=== PATIENT | female | born 1950 | race Caucasian/White ===

== ENCOUNTER 2021-03-01 09:00 | Inpatient (IN) ==
[2021-03-01] MEDS ORDERED: ONDANSETRON INJ 2 MG/ML 2 ML VIAL IV PRN (09:12)
[2021-03-01] MEDS ORDERED: ALUMINUM/MAGNESIUM SUSP 30 ML UDC PO PRN (09:12)
[2021-03-01] MEDS ORDERED: MAGNESIUM HYDROXIDE SUSP 30 ML UDC PO PRN (09:12)
[2021-03-01] MEDS ORDERED: PATIENT'S HEIGHT AND/OR WEIGHT NEEDED SCH (09:45)
[2021-03-01] MEDS: SODIUM CHLORIDE 0.9% 1000ML 1,000 ML IV SCH ×2 (10:00→17:35)
[2021-03-01 10:46] LABS: Basophils # (auto) 0.03 K/uL (0-0.2); Basophils % (auto) 0.7 %; Eosinophils # (auto) 0.22 K/uL (0-0.5); Eosinophils % (auto) 5.2 %; Hematocrit (blood only) 39.6 % (37-47); Hemoglobin 13.5 g/dL (12.0-16.0); Lymphocytes # (auto) 0.72 K/uL (1.2-3.4); Mean Platelet Volume 9.8 fL (7.4-10.4); Monocytes # (auto) 0.46 K/uL (0.11-0.59); Monocytes % (auto) 10.8 %; Neutrophils # (auto) 2.81 K/uL (1.4-6.5); Neutrophils % (auto) 66.3 %; Platelet Count 267 K/uL (130-400); RDW Coefficient of Variation 15.8 % (11.5-14.5); RDW Standard Deviation 52.7 fL (36.4-46.3); Red Blood Count 4.35 M/uL (4.2-5.4); White Blood Count 4.24 K/uL (4.8-10.8)
[2021-03-01 10:53] LABS: Mean Corpuscular Hgb Conc 34.1 g/dL (32-36)
[2021-03-01 11:06] LABS: Alanine Aminotransferase 22 U/L (12-78); Albumin Level 2.8 gm/dl (3.4-5.0); Aspartate Aminotransferase 20 U/L (15-37); BUN Creatinine Ratio 17.8 (10-20); Blood Urea Nitrogen 14 mg/dl (7-18); Calcium 8.6 mg/dl (8.5-10.1); Carbon Dioxide 32 mmol/L (21-32); Chloride 108 mmol/L (98-107); Creatinine Clr Calc Pharmacy 55.7 ml/min; Est GFR (African American) 89.9 ml/min; Est GFR (Non-African American) 77.6 ml/min; Glucose 86 mg/dl (70-99); Potassium 4.3 mmol/L (3.5-5.1); Sodium 141 mmol/L (136-145); Uric Acid 4.1 mg/dl (2.6-7.2)
[2021-03-01 11:08] LABS: Albumin Globulin Ratio 0.8 (0.9-2); Alkaline Phosphatase 53 U/L (45-117); Bilirubin Direct < 0.1 mg/dl (0-0.2); Bilirubin,Total 0.3 mg/dl (0.2-1); Globulin 3.6 gm/dl (2.5-4.0); Total Protein 6.4 gm/dl (6.4-8.2)
[2021-03-01] MEDS: SULFAMETHOXAZOLE/TRIMETHOPRIM DS 800/160MG TAB PO SCH ×2 (11:53→21:15)
[2021-03-01] MEDS: levoFLOXacin 750 MG TAB PO SCH (11:54)
[2021-03-01] MEDS: valACYclovir HCL 500 MG TABLET PO SCH ×2 (11:54→21:15)
[2021-03-01] MEDS: PYRIDOXINE HCL 50 MG TAB PO SCH (11:54)
[2021-03-01] MEDS: allopurinoL 300 MG TAB PO SCH (11:55)
[2021-03-01] MEDS ORDERED: ONDANSETRON 8MG OD TAB PO SCH (13:30)
[2021-03-01] MEDS ORDERED: dexAMETHasone 4 MG TAB PO SCH (13:30)
[2021-03-01] MEDS: CHOLECALCIFEROL 1,000 UNITS 25 MCG TAB PO SCH (13:41)
[2021-03-01] MEDS ORDERED: allopurinoL 100 MG TAB PO SCH (14:00)
[2021-03-01] MEDS ORDERED: DOXORUBICIN HCL IV SCH (14:00)
[2021-03-01] MEDS ORDERED: CYCLOPHOSPHAMIDE IV SCH (14:30)
[2021-03-01] MEDS ORDERED: SODIUM CHLORIDE 0.9% IV SCH (14:30)
[2021-03-01] MEDS ORDERED: HEPARIN 100 UNIT/ML 5ML FLUSH ONE (17:27)
[2021-03-01] MEDS: predniSONE 50 MG TAB PO SCH (17:34)
--- NOTE | 2021-03-01 17:52 | History & Physical Report ---
Date of Service March 01, 2021 Assessment & Plan (1) Follicular lymphoma grade III: Plan: Patient was prehospital started on valacyclovir levofloxacin and Bactrim. She was on uric acid also initiated will be continued on such to avoid tumor lysis syndrome and she will be hydrated with normal saline although if tumor lysis syndrome occurs a less than isotonic crystalloid solution can be considered. Patient has R-CHOP orders by oncological consultation on the chart for a port is not significantly tender Patient will have surveillance laboratories for hyperkalemia hypercalcemia and hyperphosphatemia tumor lysis. Enoxaparin will be used for DVT prevention unless platelet counts become substantially lowered from chemotherapy Admission and Anticipated Discharge Date Admission Date: March 01, 2021 History of Present Illness Primary Care Provider: DARIO Laguna 71-year-old female who was admitted after left upper chest a port was placed. In December 2020 the patient had abdominal pain and a CT scan abdomen pelvis that showed a large intra-abdominal mass. Patient underwent fine-needle aspiration and core biopsy on January 15 showing a follicular grade 3A lymphoma primarily small cell. PET scan February 08 showed uptake in the left supraclavicular lymph node, right chest wall, right femoral lymph node, and a large conglomeration in the abdomen measuring 13 x 11 x 19. There was some retrocrural lymph nodes and mediastinal and hilar lymph nodes that were calcified and feels likely to be secondary to inflammation. Patient is admitted for chemotherapy. Prechemotherapy echocardiogram was with an EF of 65%. Brain MRI of 03 February showed no changes or leptomeningeal enhancement. And a bone marrow biopsy February 02 was normal cellular with maturing trilineage hematopoiesis. The patient has night sweats and unintentional weight loss decreased energy and headache. Patient is admitted with likely lymphoma grade 3A stage IVb admitted for HOP chemotherapy with concern for tumor lysis syndrome Allergies Allergy/AdvReac Type Severity Reaction Status Date / Time No Known Allergies Allergy Verified 03/01/21 05:53 Home Medications Medication Instructions Recorded Confirmed Type allopurinol 100 mg tablet 200 mg PO DAILY tab 02/25/21 03/01/21 History calcium carbonate 600 mg (1,500 1 tab PO DAILY 02/25/21 03/01/21 History mg)-vitamin D3 200 unit tablet (Calcium 600 + D(3)) cod liver oil 5 ml PO DAILY 02/25/21 03/01/21 History levofloxacin 750 mg tablet 750 mg PO DAILY 02/25/21 03/01/21 History pyridoxine (vitamin B6) 50 mg 50 mg PO DAILY 02/25/21 03/01/21 History tablet (Vitamin B-6) sulfamethoxazole 800 1 tab PO BID 02/25/21 03/01/21 History mg-trimethoprim 160 mg tablet (Bactrim DS) valacyclovir 500 mg tablet 500 mg PO Q12H 02/25/21 03/01/21 History (Valtrex) ergocalciferol (vitamin D2) 1,000 1 tab PO DAILY 03/01/21 03/01/21 History unit tablet Past Med/Surg History Medical History (Updated 03/01/21 @ 17:51 by Ross Caba MD) Follicular lymphoma grade III Non-Hodgkin lymphoma Surgical History (Updated 03/01/21 @ 13:15 by Della Bloom, ABDIRASHID) H/O lymph node biopsy Port-A-Cath in place (03/01/21) Insertion of Access Port Left Subclavian with Fluoroscopy Dr. 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: No Beliefs That Will Affect Care: None Current Living Situation: Spouse and Family Other Information That Helps Us Care for You: No Feels Safe at Home: Yes Safety Concerns: Feels Safe At This Time Assistive Devices: Glasses Review of Systems Review of Systems: Mild distress and fatigue has had sweating at night Frontal bioccipital headache, no visual changes no speech or swallowing issues no chest pain, pressure or palpitations no shortness of breath, cough or wheezes This is a centralized aching style abdominal pain, no nausea or vomiting, no diarrhea or constipation Has had unintentional weight loss no dysuria, hematuria or frequency no focal joint pain or swelling no back pain, CVA tenderness or radicular pain no bruising, bleeding or rashes no focal signs of weakness or numbness or altered sensation no complaints of anxiety or depression.. Physical Exam Physical Exam: The patient appeared well nourished and normally developed. Vital signs as documented. Head exam is normocephalic atraumatic Neck is without JVD, thyromegaly, or carotid bruits. Lungs are clear to auscultation, no focal loss of breath sounds a port present in the right upper chest Cardiac exam, Rhythm is regular.. No murmurs, rubs or gallops. Abdominal exam reveals normal bowel sounds, soft doughy central abdominal examination no defined hepatomegaly or masses felt Extremities are nonedematous and both pedal pulses are present Neurologic exam is alert and oriented, no focal loss of strength or sensation Skin is without bruises or rashes Psychologically is without concerns for anxiety or depression Results & Data Results & Data ([facility]) Vital Signs (Past 12 Hours) Vital Signs Temp Pulse Resp BP Pulse Ox 03/01/21 15:00 97.7 F 80 18 129/71 92 03/01/21 13:58 83 20 147/78 H 96 03/01/21 11:58 79 20 122/81 96 03/01/21 10:37 98.8 F 87 16 128/67 94 03/01/21 10:18 99.0 F 81 16 138/73 96 03/01/21 09:40 97.7 F 81 20 158/78 H 96 Code Status & VTE Plan VTE Prophylaxis Plan VTE Prophylaxis will be ordered: Yes PG Care Time/CCT Total # of Minutes Spent Total Time Spent with Patient: Total time spent is greater than 50% in coordination of care (as documented) at patient's floor/unit and/or counseling patient: Coding Level of Care Code 28278 Initial Inpt Care Lvl 2 Diagnoses Follicular lymphoma grade III C82.20
[2021-03-01 18:02] LABS: Basophils # (auto) 0.03 K/uL (0-0.2); Basophils % (auto) 0.4 %; Eosinophils # (auto) 0.03 K/uL (0-0.5); Eosinophils % (auto) 0.4 %; Hematocrit (blood only) 38.8 % (37-47); Hemoglobin 13.2 g/dL (12.0-16.0); Immature Granulocytes # (auto) 0.01 K/uL (0.00-0.02); Immature Granulocytes % (auto) 0.1 %; Lymphocytes # (auto) 0.57 K/uL (1.2-3.4); Lymphocytes % (auto) 8.5 %; Mean Corpuscular Hemoglobin 30.7 pg (25-34); Mean Corpuscular Volume 90.2 fL (80-100); Mean Platelet Volume 9.8 fL (7.4-10.4); Monocytes # (auto) 0.09 K/uL (0.11-0.59); Monocytes % (auto) 1.3 %; Neutrophils # (auto) 5.98 K/uL (1.4-6.5); Neutrophils % (auto) 89.3 %; Nucleated RBC # (auto) 0.05 K/uL (0-0); Nucleated RBC % (auto) 0.8 %; Platelet Count 216 K/uL (130-400); RDW Coefficient of Variation 15.7 % (11.5-14.5); RDW Standard Deviation 51.4 fL (36.4-46.3); White Blood Count 6.71 K/uL (4.8-10.8)
[2021-03-01 18:20] LABS: Calcium 7.5 mg/dl (8.5-10.1); Potassium 4.4 mmol/L (3.5-5.1)
[2021-03-01 18:24] LABS: Phosphorus 2.3 mg/dl (2.5-4.9)
[2021-03-02] MEDS: SODIUM CHLORIDE 0.9% 1000ML 1,000 ML IV SCH ×3 (01:37→15:55)
[2021-03-02] MEDS: ACETAMINOPHEN 325 MG TAB PO PRN ×2 (02:20→22:36)
[2021-03-02 06:37] LABS: Hematocrit (blood only) 37.6 % (37-47); Mean Corpuscular Hemoglobin 30.8 pg (25-34); Mean Corpuscular Hgb Conc 34.6 g/dL (32-36); Mean Corpuscular Volume 89.1 fL (80-100); Mean Platelet Volume 9.8 fL (7.4-10.4); Platelet Count 233 K/uL (130-400); RDW Coefficient of Variation 15.3 % (11.5-14.5); RDW Standard Deviation 49.5 fL (36.4-46.3); Red Blood Count 4.22 M/uL (4.2-5.4); White Blood Count 7.91 K/uL (4.8-10.8)
[2021-03-02 07:09] LABS: BUN Creatinine Ratio 27.1 (10-20); Calcium 7.8 mg/dl (8.5-10.1); Est GFR (African American) 97.4 ml/min; Magnesium 2.2 mg/dl (1.8-2.4)
[2021-03-02 07:17] LABS: Phosphorus 3.5 mg/dl (2.5-4.9)
[2021-03-02] MEDS: allopurinoL 300 MG TAB PO SCH (08:23)
[2021-03-02] MEDS: CHOLECALCIFEROL 1,000 UNITS 25 MCG TAB PO SCH (08:23)
[2021-03-02] MEDS: levoFLOXacin 750 MG TAB PO SCH (08:23)
[2021-03-02] MEDS: ENOXAPARIN INJ 40 MG/0.4 ML SYR SQ SCH (08:24)
[2021-03-02] MEDS: valACYclovir HCL 500 MG TABLET PO SCH ×2 (08:24→20:14)
[2021-03-02] MEDS: PYRIDOXINE HCL 50 MG TAB PO SCH (08:24)
[2021-03-02] MEDS: predniSONE 50 MG TAB PO SCH (08:24)
--- NOTE | 2021-03-02 08:34 | Hospitalist Progress Note ---
Date of Service March 02, 2021 Assessment & Plan (1) Follicular lymphoma grade III: Plan: Patient was prehospital started on valacyclovir levofloxacin and Bactrim. She was on uric acid also initiated will be continued on such to avoid tumor lysis syndrome and she will be hydrated with normal saline although if tumor lysis syndrome occurs a less than isotonic crystalloid solution can be considered. Patient has R-CHOP orders by oncological consultation on the chart for a port looks good. Lab rituximab infusion reported in March [address] Guzman Patient will continue to have surveillance laboratories for hyperkalemia hypercalcemia and hyperphosphatemia tumor lysis. Enoxaparin will be used for DVT prevention unless platelet counts become substantially lowered from chemotherapy Admission and Anticipated Discharge Date Admission Date: March 01, 2021 Subjective Patient currently has no complaints or problems reportedly has the remain in the hospital additional day form completion of her intravenous chemotherapeutic regimen which is complicated by her transportation limitations given she is [employer]. Reportedly if her laboratories look good if she receives her rituximab infusion she will be go home on 03 March with [facility] Review of Systems Review of Systems: Mild distress and fatigue has had sweating at night Frontal bioccipital headache, no visual changes no speech or swallowing issues no chest pain, pressure or palpitations no shortness of breath, cough or wheezes This is a centralized aching style abdominal pain, no nausea or vomiting, no diarrhea or constipation Has had unintentional weight loss no dysuria, hematuria or frequency no focal joint pain or swelling no back pain, CVA tenderness or radicular pain no bruising, bleeding or rashes no focal signs of weakness or numbness or altered sensation no complaints of anxiety or depression.. Physical Exam Physical Exam: The patient appeared well nourished and normally developed. Vital signs as documented. Head exam is normocephalic atraumatic Neck is without JVD, thyromegaly, or carotid bruits. Lungs are clear to auscultation, no focal loss of breath sounds a port present in the right upper chest Cardiac exam, Rhythm is regular.. No murmurs, rubs or gallops. Abdominal exam reveals normal bowel sounds, soft doughy central abdominal examination no defined hepatomegaly or masses felt Extremities are nonedematous and both pedal pulses are present Neurologic exam is alert and oriented, no focal loss of strength or sensation Skin is without bruises or rashes Psychologically is without concerns for anxiety or depression Results & Data Results & Data ([facility]) Vital Signs (Past 12 Hours) Vital Signs Temp Pulse Resp BP BP Pulse Ox 03/02/21 07:35 97.9 F 78 18 126/67 93 03/02/21 04:04 98.8 F 81 18 118/57 L 94 03/01/21 23:38 98.8 F 87 18 130/68 94 PG Care Time/CCT Total # of Minutes Spent Total Time Spent with Patient: Total time spent is greater than 50% in coordination of care (as documented) at patient's floor/unit and/or counseling patient: Coding Level of Care Code 46204 Subseq Hosp Care Lvl 2 Diagnoses Follicular lymphoma grade III C82.20
[2021-03-02] MEDS ORDERED: PYRIDOXINE HCL 50 MG TAB PO SCH (09:00)
[2021-03-02] MEDS ORDERED: ERGOCALCIFEROL 1000 UNIT PO SCH (09:00)
--- NOTE | 2021-03-02 10:10 | Consultation Report ---
DATE OF CONSULT: 03/02/2021. REASON FOR CONSULTATION: Follicular lymphoma, grade 3A stage IV, high risk for tumor lysis, receiving initial R-CHOP chemotherapy. HISTORY OF PRESENT ILLNESS: The patient is a 71-year-old [place] female who presents to [facility] at the request of her medical oncologist to [facility], Dr. Saran Gomez f or initiation of induction chemotherapy. The patient has been worked up in the past in late December to be precise and referring directly to Dr. Gomez's clinical note dated 02/10/2021. The patient in December had developed abdominal pain and presented to the ER where a CT of the abdomen showed a large intraab dominal mass. CT-guided FNA and core biopsy of the mass revealed follicular grade 3A lymphoma, CD10 positive, lambda light chain restricted, CD10, CD19 positive and CD20 dim to moderate. Clinically, t he patient had been battling with night sweats 16-pound unintentional weight loss since August, dec reased energy level and occasional bifrontal headache. Further workup including PET scan revealed in tensely avid 1.2 cm left supraclavicular lymph node, a 1.5 cm right chest wall nodule, 1.7 right femo ral lymph node, 13.2 x 11 x 19.1 large conglomerate abdominal lymph node classifying her as a bulky p resentation. Thus, because of risk of tumor lysis Dr. Gomez felt patient should be admitted to the [facility] to receive an initial course of R-CHOP. Visited with the patient at bedside today. She is fe eling well, no complaint of pain or abdominal discomfort. Nursing reports having some difficulty wit h MediPort, but otherwise, no significant issues today. PAST MEDICAL HISTORY: Non-Hodgkin's lymphoma, gastroesophageal reflux disease, vitamin D deficiency. PAST SURGICAL HISTORY: No surgical history other than a MediPort placement and lymph node biopsy. MEDICATIONS: Vitamin D 1000 units one tablet p.o. every day, valacyclovir 500 mg p.o. q. 12 hours, p rophylactic Bactrim 1 tablet p.o. b.i.d., prophylactic vitamin B6 50 mg p.o. every day, levofloxacin 750 mg p.o. every day, cod liver oil 5 mL p.o. every day, calcium carbonate 600 mg 1 tablet p.o. ever y day, allopurinol 200 mg p.o. every day. ALLERGIES: No known drug allergies. SOCIAL HISTORY: Patient lives with her spouse. She wears corrective lenses. She is a nonsmoker, no ndrinker, nonillicit drug user. FAMILY HISTORY: Noncontributory. REVIEW OF SYSTEMS: CONSTITUTIONAL: As per HPI, most notably for anorexia, weight loss, and night sweats. No current fe priyank or chills. SKIN: No rashes or lesions. No history of dermatoses. HEENT: Negative for headaches, lightheadedness or dizziness. No acute visual or hearing deficits. No sinus symptoms, sore throat or dysphagia. LYMPH: Positive diagnosis follicular grade 3A non-Hodgkin's lymphoma. CARDIAC: Negative for coronary artery disease, no angina or palpitations. PULMONARY: Negative for COPD. She is not acutely short of breath, dyspneic or orthopneic. No cough or hemoptysis. GASTROINTESTINAL: Negative for abdominal pain, nausea, vomiting, diarrhea or constipation, hematoche rosalie or melena stools. GENITOURINARY: Negative for hematuria, dysuria, urinary incontinence. PSYCHIATRIC: Negative for anxiety, depression, or psychoses. ENDOCRINE: Negative for diabetes or thyroid disease. MUSCULOSKELETAL: No focal muscle weakness. No arthralgias or myalgias. NEUROLOGIC: Negative for seizure, stroke or migraine headache. HEMATOLOGIC: Negative for anemia, thrombophilia or bleeding diathesis. PHYSICAL EXAMINATION: GENERAL: Very pleasant 71-year-old [facility] female in no acute distress. VITAL SIGNS: Temperature 37.1, pulse 81, respiratory rate 18, blood pressure 118/57. SKIN: Warm, dry noncyanotic without petechia, rash or ecchymosis. HEENT: Head atraumatic, normocephalic. Eyes: PERRLA, EOMI. Sclerae are nonicteric. No conjunctiv al injection. Nares patent without rhinorrhea or discharge. Throat is clear. Tongue midline. Muco us membranes are moist. NECK: Supple without JVD or thyromegaly. LYMPH: No cervical, supraclavicular, axillary or inguinal palpable nodes. HEART: Regular rate and rhythm. No clicks, rubs, murmurs or gallops. LUNGS: Clear to auscultation bilaterally. ABDOMEN: Soft, nontender, nondistended, without palpable hepatosplenomegaly. EXTREMITIES: No calf tenderness or swelling. No clubbing, cyanosis or edema. NEUROLOGICALLY: She is awake, alert and oriented x3. Cranial nerves are grossly intact. LABORATORY DATA: WBC count is 7910, hemoglobin 13, platelet count 233,000. Electrolytes are pending including uric acid, phosphorus, calcium and magnesium. LDH 306, albumin 2.8. IMPRESSION: Grade 3A follicular lymphoma, stage IVB, CD20 positive, PAX5, BCL2, BCL6, FLIPI score of 4, high risk. PLAN: The patient is a pleasant 71-year-old [facility] female under the care of Dr. Saran Gomez from the [facility]. Recent diagnosis of stage IVB follicular lymphoma, grade 3A. Because of bul ky disease patient is high risk for tumor lysis thus Dr. Gomez requested the patient be admitted for a ggressive IV hydration and careful monitoring of electrolytes moving forward. She continues prophyla ctic antibiotics and antivirals. She is on prophylactic allopurinol as well. Thus far, doing well, I believe she is scheduled to receive rituximab tomorrow if electrolytes remain stable. Thus far, kuldeep putnam seems to be doing relatively well and advised the patient, she will receive cycle #2 at [facility] in 3 we eks. Appreciate the hospitalist assistance in caring for this very pleasant patient. We will contin chris to follow along with you during her hospital stay. Job ID: [id number]
[2021-03-02 19:48] LABS: Est GFR (Non-African American) 56.1 ml/min
[2021-03-02] MEDS: HEPARIN 100 UNIT/ML 5ML FLUSH FLUSH PRN (22:40)
[2021-03-03] MEDS: SODIUM CHLORIDE 0.9% 1000ML 1,000 ML IV SCH ×3 (00:01→17:38)
[2021-03-03] MEDS ORDERED: ALTEPLASE, RECOMBINANT 1 MG/ML 2ML VIAL INSTIL ONE (08:00)
[2021-03-03] MEDS ORDERED: WATER, STERILE FOR INJ 10 ML VIAL IV ONE (08:00)
[2021-03-03] MEDS: allopurinoL 300 MG TAB PO SCH (08:06)
[2021-03-03] MEDS: PYRIDOXINE HCL 50 MG TAB PO SCH (08:06)
[2021-03-03] MEDS: predniSONE 50 MG TAB PO SCH (08:07)
[2021-03-03] MEDS: SULFAMETHOXAZOLE/TRIMETHOPRIM DS 800/160MG TAB PO SCH (08:07)
[2021-03-03] MEDS: levoFLOXacin 750 MG TAB PO SCH (08:07)
[2021-03-03] MEDS: CHOLECALCIFEROL 1,000 UNITS 25 MCG TAB PO SCH (08:07)
[2021-03-03] MEDS: ENOXAPARIN INJ 40 MG/0.4 ML SYR SQ SCH (08:08)
[2021-03-03] MEDS: valACYclovir HCL 500 MG TABLET PO SCH (08:08)
[2021-03-03] MEDS ORDERED: DOXORUBICIN HCL IV SCH (09:00)
[2021-03-03 09:15] LABS: Hematocrit (blood only) 37.1 % (37-47); Hemoglobin 12.7 g/dL (12.0-16.0); Mean Corpuscular Hemoglobin 30.6 pg (25-34); Mean Corpuscular Hgb Conc 34.2 g/dL (32-36); Mean Corpuscular Volume 89.4 fL (80-100); Mean Platelet Volume 9.5 fL (7.4-10.4); Platelet Count 234 K/uL (130-400); RDW Coefficient of Variation 15.9 % (11.5-14.5); RDW Standard Deviation 51.8 fL (36.4-46.3); Red Blood Count 4.15 M/uL (4.2-5.4); White Blood Count 9.92 K/uL (4.8-10.8)
[2021-03-03] MEDS ORDERED: [UNRECOGNIZED DRUG - OTHER] IV PRN (09:30)
[2021-03-03 09:44] LABS: BUN Creatinine Ratio 24.8 (10-20); Calcium 8.2 mg/dl (8.5-10.1); Est GFR (African American) 95.8 ml/min; Est GFR (Non-African American) 82.7 ml/min; Magnesium 1.8 mg/dl (1.8-2.4); Potassium 3.6 mmol/L (3.5-5.1); Uric Acid 3.8 mg/dl (2.6-7.2)
[2021-03-03 09:46] LABS: Phosphorus 2.7 mg/dl (2.5-4.9)
[2021-03-03] MEDS ORDERED: Pre-Med DiphenhydrAMINE 25 MG CAP PO SCH ×2 (10:00→11:15)
[2021-03-03] MEDS ORDERED: Pre-Med ACETAMINOPHEN 325 MG TAB PO SCH ×2 (10:00→11:15)
[2021-03-03] MEDS ORDERED: dexAMETHasone 4 MG TAB PO SCH ×2 (10:00→11:15)
[2021-03-03] MEDS ORDERED: [UNRECOGNIZED DRUG - MIXTURE] IV PRN (10:30)
[2021-03-03] MEDS ORDERED: [UNRECOGNIZED DRUG - OTHER] IV PRN (10:30)
[2021-03-03] MEDS ORDERED: [UNRECOGNIZED DRUG - OTHER] IV PRN (10:30)
[2021-03-03] MEDS ORDERED: SODIUM CHLORIDE IV PRN (10:30)
[2021-03-03] MEDS: HEPARIN 100 UNIT/ML 5ML FLUSH FLUSH PRN ×2 (10:37→16:38)
[2021-03-03] MEDS ORDERED: [UNRECOGNIZED DRUG - OTHER] IV SCH (11:45)
[2021-03-03] MEDS ORDERED: RITUXIMAB PVVR IV SCH (11:45)
--- NOTE | 2021-03-03 18:21 | Discharge Summary ---
Date of Service March 03, 2021 Admission HPI Per Admitting Provider 71-year-old female who was admitted after left upper chest a port was placed. In December 2020 the patient had abdominal pain and a CT scan abdomen pelvis that showed a large intra-abdominal mass. Patient underwent fine-needle aspiration and core biopsy on January 15 showing a follicular grade 3A lymphoma primarily small cell. PET scan February 08 showed uptake in the left supraclavicular lymph node, right chest wall, right femoral lymph node, and a large conglomeration in the abdomen measuring 13 x 11 x 19. There was some retrocrural lymph nodes and mediastinal and hilar lymph nodes that were calcified and feels likely to be secondary to inflammation. Patient is admitted for chemotherapy. Prechemotherapy echocardiogram was with an EF of 65%. Brain MRI of 03 February showed no changes or leptomeningeal enhancement. And a bone marrow biopsy February 02 was normal cellular with maturing trilineage hematopoiesis. The patient has night sweats and unintentional weight loss decreased energy and headache. Patient is admitted with likely lymphoma grade 3A stage IVb admitted for rCHOP chemotherapy with concern for tumor lysis syndrome Principal Diagnosis Follicular lymphoma grade III, initiation of chemotherapy Discharge Exam The patient appeared well Vital signs as documented. Lungs are clear to auscultation and appear unlabored Cardiac exam, Rhythm is regular.. No murmurs, rubs or gallops. Abdominal exam reveals normal bowel sounds, soft non tender, no masses Extremities are nonedematous and both pedal pulses are normal. Neurologic exam is alert and oriented, no focal loss of strength or sensation Skin is without bruises or rashes Psychologically is without concerns for anxiety or depression. Discharge Data Allergies Allergy/AdvReac Type Severity Reaction Status Date / Time No Known Allergies Allergy Verified 03/01/21 05:53 Consultations 03/01/21 09:15 Consult Oncology Routine Hospital Course (1) Follicular lymphoma grade III: Patient was prehospital started on valacyclovir levofloxacin and Bactrim. She was on uric acid also initiated will be continued on such to avoid tumor lysis syndrome and she will be hydrated with normal saline although if tumor lysis syndrome occurs a less than isotonic crystalloid solution can be considered. Patient has R-CHOP orders by oncological consultation on the chart for a port looks good. Lab rituximab infusion reported in March [address] Guzman Patient will continue to have surveillance laboratories for hyperkalemia hyperca lcemia and hyperphosphatemia tumor lysis. Enoxaparin will be used for DVT prevention unless platelet counts become substantially lowered from chemotherapy Total Time Total Time Spent Total Time Spent (In Minutes): It required less than 30 minutes to prepare this patient for discharge Discharge Plan Discharge Items Patient Disposition: Home - Self-Care Reason For Visit: B CELL LYMPHOMA Discharge Diagnosis: b cell lymphoma s/p chemo Activity: Resume your previous activity Non-emergency contact: Primary Care Provider and Oncologist Call non-emergency contact if: your symptoms worsen and you have a fever Follow-up/Referrals: Roney Guzman DO [Physician] - Kallie Vaughan CRNP [Primary Care Provider] - Diet: Regular Ambulatory Orders: Basic Metabolic Panel (Routine) Timeframe: 5 Days Location: Determined by Patient Ordered By: Ross Caba Complete Blood Count with Diff (Routine) Timeframe: 5 Days Location: Determined by Patient Ordered By: Ross Caba Lactate Dehydrogenase (Routine) Timeframe: 5 Days Location: Determined by Patient Ordered By: Ross Caba Uric Acid (Routine) Timeframe: 5 Days Location: Determined by Patient Ordered By: Ross Caba Addtl Attending Provider Instructions: Please have blood checked on monday03/08/21 Pending Studies at Discharge: No Stand-Alone Forms: [employer], Smoking Cessation Medications and DC Order Prescriptions: Continued calcium carbonate-vitamin D3 [Calcium 600 + D(3)] 600 mg(1,500mg) -200 unit tablet 1 tab PO DAILY RF: 0 allopurinol 100 mg tablet 200 mg PO DAILY RF: 0 cod liver oil Oil 5 ml PO DAILY RF: 0 pyridoxine (vitamin B6) [Vitamin B-6] 50 mg tablet 50 mg PO DAILY RF: 0 valacyclovir [Valtrex] 500 mg tablet 500 mg PO Q12H RF: 0 levofloxacin 750 mg tablet 750 mg PO DAILY RF: 0 sulfamethoxazole-trimethoprim [Bactrim DS] 800-160 mg tablet 1 tab PO BID RF: 0 ergocalciferol (vitamin D2) 1,000 unit Tablet 1 tab PO DAILY RF: 0 Discharge Orders: Discharge Order (Routine); Ordered 03/03/21 Ordered By: Ross Caba Admission Data Admit Date/Time: 03/01/21 09:16 Attending Provider: Ross Caba Admit Provider: Ross Caba Primary Care Provider: Kallie Vaughan Other Providers: Roney Guzman V. Other Interventions: Discharge Summary Assessment (RN) Last Done: 03/03/21 17:39 Coding Level of Care Code D/C DAY MANAGEMENT <30 MINS Diagnoses Follicular lymphoma grade III C82.20
== END 2021-03-03 18:45 | disposition home or self-care (01) | DRG 847 ==
LOC: 2W 09:16
DX: Z51.81 Encounter for therapeutic drug level monitoring; Z79.899 Other long term (current) drug therapy; E55.9 Vitamin D deficiency, unspecified; C82.23 Follicular lymphoma grade III, unspecified, intra-abdominal lymph nodes; Z51.11 Encounter for antineoplastic chemotherapy